=== PATIENT | female | born 1950 ===

== ENCOUNTER → 2017-11-30 | Outpatient (CLI) | payer MEDICARE, OTHER ==
[~2017-11-30] MED LIST: ALBU18HF INH; ALPR2TAB4 PO; AMIT25TA PO; ASPI-496 PO; CHOL500045 PO; CYAN1TAB PO; FELO5TAB PO; LEVO125T5 PO; NORE1TAB9 PO; OXYC-296 PO; OXYC40TA27 PO; POLY17PO5 PO; VENL150C PO
== END ==
LOC: CFH 13:59
PROVIDERS: ATTEND Specialist
DX: Z13.820 Encounter for screening for osteoporosis (principal); M81.0 Age-related osteoporosis without current pathological fracture
CPT/HCPCS: 77080

== ENCOUNTER → 2018-04-27 | Outpatient (CLI) | payer MEDICARE, OTHER ==
[~2018-04-27] MED LIST changes: +GADOBUTROL 7.5 MMOL/7.5 ML PFS ONE
== END | disposition home or self-care (01) ==
LOC: RAD 13:12
PROVIDERS: ATTEND Ophthalmology
DX: H53.40 Unspecified visual field defects (principal); H47.019 Ischemic optic neuropathy, unspecified eye
CPT/HCPCS: 70543; 70553; A9585

== ENCOUNTER → 2020-02-02 | Outpatient (CLI) | payer MEDICARE, OTHER ==
[~2020-02-02] MED LIST changes: +AMLO-150 PO; +BACL20TA PO; +CEFD300C37 PO; -FELO5TAB PO; +FELO5TAB4 PO; -GADOBUTROL 7.5 MMOL/7.5 ML PFS ONE; +LATA2.5D3 EACHEYE; +OMEP10CA5 PO; +POTA20TA6 PO; +TIMO1DRO2 LEFTEYE; +TIMO5TAB LEFTEYE
== END | disposition home or self-care (01) ==
LOC: CFH 09:23
PROVIDERS: ATTEND Internal Medicine
DX: M84.48XD Pathological fracture, other site, subsequent encounter for fracture with routine healing (principal); J92.9 Pleural plaque without asbestos; I70.0 Atherosclerosis of aorta; J84.10 Pulmonary fibrosis, unspecified; J47.9 Bronchiectasis, uncomplicated; M47.814 Spondylosis without myelopathy or radiculopathy, thoracic region
CPT/HCPCS: 71250

== ENCOUNTER 2021-05-13 09:25 | Outpatient (CLI) | payer MEDICARE, OTHER ==
[~2021-05-13 09:25] MED LIST changes: -ALPR2TAB4 PO; +ALPR2TAB7 PO; -LATA2.5D3 EACHEYE; +LATA2.5D4 EACHEYE
== END 2021-05-13 23:59 | disposition home or self-care (01) ==
LOC: CFH 09:25
PROVIDERS: ATTEND Nurse Practitioner Family
DX: J84.9 Interstitial pulmonary disease, unspecified (principal); J84.10 Pulmonary fibrosis, unspecified
CPT/HCPCS: 71250

== ENCOUNTER 2021-06-30 09:56 | Outpatient (CLI) | payer MEDICARE, OTHER ==
[~2021-06-30 09:56] MED LIST changes: +POTA-143 PO; -POTA20TA6 PO
[2021-07-01 10:56] LABS: ALANINE AMINOTRANSFERASE 22 U/L (12-78); ALBUMIN 3.3 g/dL (3.4-5.0); ANION GAP 3 mmol/L (5-15); CALCIUM 9.7 mg/dL (8.5-10.1); CHLORIDE 106 mmol/L (98-107)
[2021-07-01 10:58] LABS: ALKALINE PHOSPHATASE 172 U/L (45-117); BILIRUBIN,TOTAL 0.4 mg/dL (0.2-1.0)
== END 2021-06-30 23:59 | disposition home or self-care (01) ==
LOC: CVU 09:56
PROVIDERS: ATTEND Nurse Practitioner Family
DX: I36.1 Nonrheumatic tricuspid (valve) insufficiency (principal); I11.9 Hypertensive heart disease without heart failure; J84.10 Pulmonary fibrosis, unspecified; I27.20 Pulmonary hypertension, unspecified
CPT/HCPCS: 36415; 80053; 93306; 93356

== ENCOUNTER → 2021-07-01 | Outpatient (CLI) | payer MEDICARE, OTHER | END | disposition home or self-care (01) | LOC: LAB 14:18 | PROVIDERS: ATTEND Nurse Practitioner Family | DX: I10 Essential (primary) hypertension (principal); J84.10 Pulmonary fibrosis, unspecified | CPT/HCPCS: 36415; 80053 ==